=== PATIENT | male | born 1980 | race African-American/Black ===

== ENCOUNTER 2021-06-30 10:19 | Emergency (ER) | payer OTHER, BC, SELFPAY ==
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
[2021-06-30 10:35] VITALS: BP 136/75; PULSE 57; RESP 18; TEMP 36.2; O2SAT 98
[2021-06-30] MEDS: ACETAMINOPHEN 500 MG TABLET 1000 MG PO (11:40)
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
[2021-06-30 12:51] VITALS: BP 118/66; PULSE 56; RESP 16; O2SAT 100
== END 2021-06-30 12:52 | disposition home or self-care (01) ==
PROVIDERS: Emergency Provider Emergency Medicine
DX: S16.1XXA Strain of muscle, fascia and tendon at neck level, initial encounter (principal); V43.52XA Car driver injured in collision with other type car in traffic accident, initial encounter; Y92.410 Unspecified street and highway as the place of occurrence of the external cause
CPT/HCPCS: 72125; 72128; 72131; 99284; A9270

== ENCOUNTER 2022-04-09 10:18 | Emergency (ER) | payer OTHER, BC, SELFPAY ==
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
[2022-04-09 10:31] VITALS: BP 146/70; PULSE 74; RESP 16; TEMP 36.3; O2SAT 99
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
[2022-04-09] MEDS: KETOROLAC (*BKC) 60 MG/2 ML VIAL IM (11:55)
[2022-04-09 12:56] VITALS: BP 140/65; PULSE 52; RESP 16; O2SAT 100
== END 2022-04-09 12:59 | disposition home or self-care (01) ==
PROVIDERS: Emergency Provider General Practice
DX: S39.012A Strain of muscle, fascia and tendon of lower back, initial encounter (principal); V49.40XA Driver injured in collision with unspecified motor vehicles in traffic accident, initial encounter
CPT/HCPCS: 72110; 73030; 96372; 99284; J1885